=== PATIENT | male | born 1950 | race Caucasian/White ===

== ENCOUNTER 2019-06-11 07:58 | Emergency (ER) | payer MEDICARE ==
[~2019-06-11] VITALS: Ht 172.7 cm; Wt 74.4 kg
--- NOTE | 2019-06-11 08:22 | PHYS DOC ---
Adult General Chief Complaint Chief Complaint: ALLERGIC REACTION HPI HPI Patient is a 68 year old male who presents with 2 days ago was pulling carrie and weeds from side of the house. Patient states yesterday when he awoke he noticed some eye swelling and itching and getting some redness and bumps on his left neck and side of the face. Patient states he took a antihistamine last night at 2114. Patient states when he woke up this morning both eyes were swollen shut and are very itchy and the redness and bumps to the left side of the neck are pronounced. Patient states he has not taken any antihistamine today. Review of Systems Review of Systems Constitutional: Denies fever or chills [] Eyes: Denies change in visual acuity, redness, or eye pain. Itching, swollen. [] HENT: Denies nasal congestion or sore throat [] Respiratory: Denies cough or shortness of breath [] Integument: Hives and eyes swollen shut. rash or skin lesions [] Neurologic: Denies headache, focal weakness or sensory changes [] All other systems were reviewed and found to be within normal limits, except as documented in this note. Current Medications Current Medications Current Medications Medications (Trade) Dose Ordered Sig/Ya Start Time Stop Time Status Last Admin Dose Admin Diphenhydramine HCl (Benadryl) 50 mg 1X ONCE 06/11/19 08:15 06/11/19 08:24 DC 06/11/19 08:27 50 MG Famotidine (Pepcid) 20 mg 1X ONCE 06/11/19 08:15 06/11/19 08:24 DC 06/11/19 08:27 20 MG Prednisone (Prednisone) 50 mg 1X ONCE 06/11/19 08:15 06/11/19 08:24 DC 06/11/19 08:27 50 MG Allergies Allergies Allergies Coded Allergies Type Severity Reaction Last Updated Verified rabies immune globulin Allergy Unknown 06/11/19 Yes Physical Exam Physical Exam Constitutional: Well developed, well nourished, no acute distress, non-toxic appearance. [] HENT: Normocephalic, atraumatic, bilateral external ears normal, oropharynx moist, no oral exudates, nose normal. [] Eyes: PERRLA, EOMI, conjunctiva normal, no discharge. Swollen shut bilaterally. No vision loss. [] Neck: Normal range of motion, no tenderness, supple, no stridor. [] Cardiovascular:Heart rate regular rhythm, no murmur [] Lungs & Thorax: Bilateral breath sounds clear to auscultation [] Skin: Reddened, raised, non blistered Contact dermatitis to Left neck and left lower side of face. Bilateral eyes swollen shut without discharge. Warm, dry, no erythema, no rash. [] Neurologic: Alert and oriented X 3, normal motor function, normal sensory functi on, no focal deficits noted. [] Psychologic: Affect normal, judgement normal, mood normal. [] Current Patient Data Vital Signs Vital Signs Date Time Temp Pulse Resp B/P (MAP) Pulse Ox O2 Delivery O2 Flow Rate FiO2 06/11/19 08:11 98.5 72 16 139/63 (88) 98 Room Air 98.5 EKG EKG [] Radiology/Procedures Radiology/Procedures [] Course & Med Decision Making Course & Med Decision Making Patient is a 68 year old male who presents with 2 days ago was pulling carrie and weeds from side of the house. Patient states yesterday when he awoke he noticed some eye swelling and itching and getting some redness and bumps on his left neck and side of the face. Patient states he took a antihistamine last night at 2114. Patient states when he woke up this morning both eyes were swollen shut and are very itchy and the redness and bumps to the left side of the neck are pronounced. Patient states he has not taken any antihistamine today. Patient denies shortness of breath, throat itching or feeling like his throat is swelling. There is no tongue swelling. No swelling of the lips. There is no discharge from the eyes. Patient looks to have contact dermatitis without blisters to the left side of his neck up to the side of his face. Patient speaks in full clear sentences. Lungs are clear to auscultation all lobes. Vital signs within normal limits. No hives seen in the mouth or the throat. Upon reassessment after medications are given patient can open his eyes and swelling has gone down. Patient states he is feeling better. Rash to left side of neck and face has decreased. Dragon Disclaimer Dragon Disclaimer This electronic medical record was generated, in whole or in part, using a voice recognition dictation system. Departure Departure Impression: Primary Impression: Allergic reaction Disposition: 01 HOME, SELF-CARE Condition: STABLE Referrals: RAEGAN BILLY MD (PCP) Patient Instructions: Contact Dermatitis Additional Instructions: Take medications as prescribed. Follow up with primary care. If your mouth begins to itch or swell call 911. Scripts Epinephrine (EPIPEN 2-MARIBEL) 0.3 Mg/0.3 Ml Auto.injct 0.3 MG IJ PRN PRN for ANAPHYLAXIS, #1 SYR FOR EMERGENCY ANAPHYLAXIS USE ONLY Prov: NICOLA WHITE APRN 06/11/19 Famotidine (PEPCID) 20 Mg Tablet 20 MG PO BID for 5 Days, #10 TAB Prov: NICOLA WHITE APRN 06/11/19 Diphenhydramine Hcl (BENADRYL) 25 Mg Capsule 25 MG PO Q6H for 5 Days, #20 CAP Prov: NICOLA WHITE APRN 06/11/19 Methylprednisolone (MEDROL) 4 Mg Tab.ds.pk 1 PKG PO UD, #1 PKG Prov: NICOLA WHITE APRN 06/11/19 Problem Qualifiers Primary Impression: Allergic reaction Encounter type: initial encounter Qualified Codes: T78.40XA - Allergy, unspecified, initial encounter NICOLA WHITE APRN Jun 11, 2019 08:22
[2019-06-11] MEDS: diphenhydrAMINE HCL 25 MG CAPSULE PO ONE (08:26)
[2019-06-11] MEDS: predniSONE 10 MG TABLET PO ONE (08:27)
[2019-06-11] MEDS: FAMOTIDINE 20 MG TABLET. PO ONE (08:27)
[2019-06-11] MEDS ORDERED: FAMO-63 PO (09:23)
[2019-06-11] MEDS ORDERED: EPIPEN 2-P0.3 MG/0.3 IJ (09:23)
[2019-06-11] MEDS ORDERED: DIPH25CA58 PO (09:23)
[2019-06-11] MEDS ORDERED: METH4TAB2 PO (09:23)
[2019-06-11 09:30] VITALS: BP 106/51
[2019-06-12] MEDS ORDERED: VARE1TAB21 PO (04:18)
[2019-06-12] MEDS ORDERED: CELE200C PO (04:18)
[2019-06-12] MEDS ORDERED: CHOL500016 PO (04:18)
[2019-06-12] MEDS ORDERED: GABA800T5 PO (04:18)
[2019-06-12] MEDS ORDERED: ATORVASTATIN CA80 MG PO (04:18)
[2019-06-12] MEDS ORDERED: ALBU2.5V8 INH (04:18)
[2019-06-12] MEDS ORDERED: VITA400C36 PO (04:18)
[2019-06-12] MEDS ORDERED: HYDR-2769 PO (04:18)
[2019-06-12] MEDS ORDERED: LISI10TA2 PO (04:18)
[2019-06-12] MEDS ORDERED: TRAM50TA PO (04:18)
[2019-06-12] MEDS ORDERED: TIZA4TAB2 PO (04:18)
[2019-06-12] MEDS ORDERED: TRAZ-86 PO (04:18)
[2019-06-12] MEDS ORDERED: [UNRECOGNIZED DRUG - CODE] PO (04:18)
[2019-06-12] MEDS ORDERED: ASPI81TA50 PO (04:18)
== END 2019-06-11 10:15 | disposition home or self-care (01) ==
LOC: ER 07:58
DX: L50.0 Allergic urticaria (principal); Z88.7 Allergy status to serum and vaccine
CPT/HCPCS: 99284; J7512; Q0163

== ENCOUNTER 2021-02-21 09:17 | Emergency (ER) | payer OTHER, MEDICARE ==
[~2021-02-21] VITALS: Ht 172.7 cm; Wt 75.5 kg
[~2021-02-21 09:17] MED LIST: ALBU2.5V8 INH; ASPI81TA50 PO; ATORVASTATIN CA80 MG PO; CELE200C PO; CHOL500016 PO; DIPH25CA58 PO; EPIPEN 2-P0.3 MG/0.3 IJ; FAMO-63 PO; GABA800T5 PO; HYDR-2769 PO; LISI10TA16 PO; METH4TAB2 PO; TIZA4TAB2 PO; TRAM50TA PO; TRAZ-123 PO; VARE1TAB21 PO; VITA-8 PO; [UNRECOGNIZED DRUG - CODE] PO
[2021-02-21 09:47] VITALS: BP 140/83
[2021-02-21] MEDS ORDERED: CEPHALEXIN 250 MG CAPSULE. PO STA (10:40)
[2021-02-21] MEDS ORDERED: DIPH,PERTUSS(ACELL),TET VAC/PF 0.5 ML SYRINGE. VAX IM ONE (11:00)
--- NOTE | 2021-02-21 11:24 | RAD ---
EXAM: Right thumb, 3 views. HISTORY: Laceration. COMPARISON: None. FINDINGS: 3 views of the right thumb are obtained. There is hyperflexion of the first interphalangeal joint. No dislocation is seen. No radiodense foreign body is seen. There is triscaphe joint space na rrowing with subchondral sclerosis. There is increased density involving the lunate which may be proj ectional. There is no convincing osteonecrosis on the submitted images. IMPRESSION: Hyperflexion of the first interphalangeal joint. No foreign body or fracture is seen. Electronically signed by: Jackie Holley MD (02/21/2021 11:22 AM) [id number]
--- NOTE | 2021-02-21 11:39 | PHYS DOC ---
Past Medical History Past Medical History: CAD, High Cholesterol, Hypertension, MN, Other Additional Past Medical Histor: chronic neck/back pain Past Surgical History: Pacemaker, Other Additional Past Surgical Histo: neck/back surgeries Smoking Status: Current Every Day Smoker Additional Information: 1.5 PPD Alcohol Use: None Drug Use: None General Adult EDM: Chief Complaint: LACERATION/AVULSION HPI: HPI: Patient is a 70 year old male with history of MN, CAD, hypertension, high cholesterol, chronic pain on several pain medications including tramadol, hydrocodone, who presents to the ED today complaining of a laceration to the right hand that occurred on Sunday which is 3 days ago. Patient states he cut his thumb on a piece of ceramic. He states at this point he realized he is unable to hyperextend the right thumb. Patient reports being right-handed. Review of Systems: Review of Systems: Constitutional: Denies fever or chills. [] Musculoskeletal: Denies back pain or joint pain. [] Integument: Reports right thumb laceration Neurologic: Denies headache, focal weakness or sensory changes. [] Psychiatric: Denies depression or anxiety. [] Heart Score: C/O Chest Pain: N/A Risk Factors: Risk Factors: DM, Current or recent (<one month) smoker, HTN, HLP, family history of CAD, obesity. Risk Scores: Score 0 - 3: 2.5% MACE over next 6 weeks - Discharge Home Score 4 - 6: 20.3% MACE over next 6 weeks - Admit for Clinical Observation Score 7 - 10: 72.7% MACE over next 6 weeks - Early Invasive Strategies Current Medications: Current Medications Medications (Trade) Dose Ordered Sig/Ya Start Time Stop Time Status Last Admin Dose Admin Cephalexin HCl (Keflex) 500 mg 1X STAT 02/21/21 10:40 02/21/21 10:43 DC 02/21/21 10:59 500 MG Diphtheria/ Tetanus/Acell Pertussis (ADACEL TDap SYRINGE) 0.5 ml ONCE ONCE 02/21/21 11:00 02/21/21 11:01 DC 02/21/21 11:01 0.5 ML Allergies: Allergies: Allergies Coded Allergies Type Severity Reaction Last Updated Verified LEELA Inhibitors Allergy Intermediate POSSIBLE CULPRIT IN ALLERGIC RXN 06/12/19 Yes rabies immune globulin Allergy Intermediate 06/12/19 Yes Physical Exam: PE: Constitutional: Well developed, well nourished, no acute distress, non-toxic appearance. [] Skin: Right thumb proximal interphalangeal joint dorsal aspect with a scabbed over laceration approximately 1 cm long, there is trace redness around the laceration site. Patient's PIP joint is flexed, he states he is not able to hyperextended. Adequate radial sensation to the right thumb. +2 right radial pulse. Cap refill less than 2 seconds of right fingers. Back: No tenderness, no CVA tenderness. [] Extremities: No tenderness, no cyanosis, no clubbing, ROM intact, no edema. [] Neurologic: Alert and oriented X 3, normal motor function, normal sensory function, no focal deficits noted. [] Psychologic: Affect normal, judgement normal, mood normal. [] Current Patient Data: Vital Signs: Vital Signs Date Time Temp Pulse Resp B/P (MAP) Pulse Ox O2 Delivery O2 Flow Rate FiO2 02/21/21 09:47 98.1 80 15 140/83 (102) 96 Room Air 98.1 EKG: EKG: [] Radiology/Procedures: Radiology/Procedures: []PROCEDURE: FINGER(S) RIGHT EXAM: Right thumb, 3 views. HISTORY: Laceration. COMPARISON: None. FINDINGS: 3 views of the right thumb are obtained. There is hyperflexion of the first interphalangeal joint. No dislocation is seen. No radiodense foreign body is seen. There is triscaphe joint space narrowing with subchondral sclerosis. There is increased density involving the lunate which may be projectional. There is no convincing osteonecrosis on the submitted images. IMPRESSION: Hyperflexion of the first interphalangeal joint. No foreign body or fracture is seen. Electronically signed by: Jackie Holley MD (02/21/2021 11:22 AM) [id number] DICTATED and SIGNED BY: JACKIE HOLLEY MD DATE: 02/21/21 [id number] 0 Course & Med Decision Making: Course & Med Decision Making Pertinent Labs and Imaging studies reviewed. (See chart for details) This is a 70-year-old male patient presenting to the ED today with right thumb laceration that occurred 3 days ago, currently unable to hyperextend the thumb at the PIP joint. Spoke to patient about the need of seeing a hand surgeon. Tetanus was administered, right hand x-ray was negative for any fracture but noted for hyperflexion of the right thumb at the PIP joint. Informed patient this is likely a tendon injury. Hand surgeon recommended. Given contact number for [facility] hand surgeon. Was started on cephalexin. Right thumb form splint by the Ed RN. Neurovascular exam is intact Kar Disclaimer: Kar Disclaimer: This electronic medical record was generated, in whole or in part, using a voice recognition dictation system. Departure Departure Impression: Primary Impression: Laceration of right thumb Qualified Codes: S61.111A - Laceration without foreign body of right thumb with damage to nail, initial encounter Disposition: HOME / SELF CARE / HOMELESS Condition: STABLE Referrals: RAEGAN BILLY MD (PCP) Please contact [facility] hand surgeon today and set up a follow up in the clinic [address] [place] [address] Patient Instructions: Fingertip Laceration Additional Instructions: You have a laceration to the right thumb with possible tendon injury. You l ikely have right thumb tendon injury. Please contact [facility] hand surgeon today and set up a follow up in the clinic [address] [place] [address] Scripts Cephalexin (CEPHALEXIN) 500 Mg Tablet 1 TAB PO TID, #30 TAB Prov: CHAPINCITO MARTINEZ APRN 02/21/21 CHAPINCITO MARTINEZ APRN February 21, 2021 11:39
[2021-02-21] MEDS ORDERED: CEPH500T PO (11:47)
== END 2021-02-21 12:01 | disposition home or self-care (01) ==
LOC: ER 09:17
DX: S61.011D Laceration without foreign body of right thumb without damage to nail, subsequent encounter (principal); E78.00 Pure hypercholesterolemia, unspecified; I10 Essential (primary) hypertension; I25.10 Atherosclerotic heart disease of native coronary artery without angina pectoris; I25.2 Old myocardial infarction; G89.29 Other chronic pain; Z95.0 Presence of cardiac pacemaker; F17.200 Nicotine dependence, unspecified, uncomplicated; Z88.8 Allergy status to other drugs, medicaments and biological substances; Z88.7 Allergy status to serum and vaccine; Y28.8XXD Contact with other sharp object, undetermined intent, subsequent encounter
CPT/HCPCS: 73140; 90471; 90715; 99284